=== PATIENT | female | born 2000 | race Caucasian/White ===

== ENCOUNTER 2021-05-20 07:54 | Day surgery (SDC) | payer OTHER ==
[2021-05-20 08:51] VITALS: BMI 44.2
[2021-05-20 09:09] LABS: Fetal Membranes Rupture No Membranes Rupture (No Rupture)
[2021-05-20] MEDS ORDERED: hydrALAZINE 20 MG/ML VIAL SLOW IVP PRN (10:04)
== END 2021-05-20 10:15 | disposition home or self-care (01) ==
LOC: CSHLD/OP 07:54
PROVIDERS: ATTEND Family Medicine
DX: O99.891 Other specified diseases and conditions complicating pregnancy (principal); N89.8 Other specified noninflammatory disorders of vagina; Z3A.37 37 weeks gestation of pregnancy; Z79.899 Other long term (current) drug therapy
CPT/HCPCS: 84112; 87480; 87510; 87660; 99284

== ENCOUNTER 2021-05-30 09:02 | Inpatient (IN) | payer OTHER ==
[2021-05-30] MEDS ORDERED: Methylergonovine 0.2 MG/ML VIAL IM PRN (09:33)
[2021-05-30] MEDS ORDERED: HYDROcodone/Acetaminophen 5/325 mg Tablet PO PRN (09:33)
[2021-05-30] MEDS ORDERED: Promethazine HCl 25 MG/ML VIAL IM PRN (09:33)
[2021-05-30] MEDS ORDERED: Misoprostol 200 MCG TAB PR PRN (09:33)
[2021-05-30] MEDS ORDERED: Lidocaine 1% (PF) 30 ML VIAL SC PRN (09:33)
[2021-05-30] MEDS ORDERED: Ibuprofen 800 MG TAB PO PRN (09:33)
[2021-05-30] MEDS ORDERED: Carboprost 250 MCG/ML AMP IM PRN (09:33)
[2021-05-30] MEDS ORDERED: Ondansetron PF 4 MG/2 ML Vial IVP PRN (09:33)
[2021-05-30] MEDS ORDERED: Acetaminophen 500 MG TAB PO PRN (09:33)
[2021-05-30] MEDS ORDERED: hydrALAZINE 20 MG/ML VIAL SLOW IVP PRN (09:33)
[2021-05-30] MEDS ORDERED: Diphenoxylate HCl/Atropine Tablet PO PRN (09:33)
[2021-05-30] MEDS ORDERED: NS w/ Oxytocin 30 units 500 ML IVPB SCH (09:45)
[2021-05-30] MEDS ORDERED: NS w/ Oxytocin 30 units 500 ML IV SCH ×2 (09:45)
[2021-05-30] MEDS ORDERED: Lactated Ringer's 1,000 ML IV SCH (09:45)
[2021-05-30 10:22] LABS: Hemoglobin 11.6 g/dL (12.0-15.5); Mean Corpuscular HGB CONC 34.6 g/dL (32.0-36.0); Mean Corpuscular Hemoglobin 31.5 pg (27.0-33.0); Mean Platelet Volume 12.1 fl (7.4-10.4); Platelet Count 208 10x3/uL (150-450); RBC Distribution Width 13.3 % (11.5-14.5); Red Blood Cell (RBC) Count 3.68 10x6/uL (3.90-5.03); White Blood Cell (WBC) Count 13.1 10x3/uL (3.5-10.5)
[2021-05-30 10:50] LABS: Hep B Surf Ag Non-Reactive S/CO (NonReactive); Syphilis Antibody Nonreactive (Nonreactive); Syphilis Antibody Index 0.04 S/CO (<1.00 Non-Reactive)
[2021-05-30 11:08] LABS: HBSAg Index 0.18 S/CO (0-0.99)
[2021-05-30 11:41] LABS: SARS-CoV-2 NAA Rapid Test Not Detected (NotDetected)
[2021-05-30] MEDS: Butorphanol Tartrate 1 MG/ML VIAL SLOW IVP PRN ×3 (12:38→14:50)
[2021-05-30] MEDS ORDERED: Fentanyl 2 mcg/Bup 0.1% Cadd 100 ML ONE ×2 (13:17→22:36)
[2021-05-30] MEDS ORDERED: Azithromycin 500 MG VIAL ONE (23:13)
[2021-05-30] MEDS ORDERED: Ondansetron PF 4 MG/2 ML Vial ONE (23:23)
[2021-05-30] MEDS ORDERED: Dexamethasone 4 mg/ml Vial ONE (23:23)
[2021-05-30] MEDS ORDERED: Oxytocin 10 UNITS/ML VIAL ONE (23:23)
[2021-05-30] MEDS ORDERED: Morphine PF 10 MG/10 ML VIAL ONE (23:23)
[2021-05-30] MEDS ORDERED: Famotidine/PF 20 mg/2ml Vial SLOW IVP PRN (23:24)
[2021-05-30] MEDS ORDERED: Bicitra 30 ML UDCUP PO PRN (23:24)
[2021-05-30] MEDS ORDERED: Lidocaine 2% MPF 10 ML AMP (For Epidural Use) ONE ×2 (23:25→23:48)
[2021-05-30] MEDS ORDERED: CEFAZOLIN 2 GM in Premix Bag 1 BAG IVPB SCH (23:30)
[2021-05-30] MEDS ORDERED: Phenylephrine 40 MG/NS 250 ML 250 ML ONE (23:50)
[2021-05-30] MEDS ORDERED: Azithromycin 500 MG in Sodium Chloride 0.9% 250 ML 250 ML IVPB SCH (23:59)
[2021-05-31] MEDS ORDERED: Meperidine HCl/PF 25 MG/ML VIAL SLOW IVP PRN ×2 (00:39→00:41)
[2021-05-31] MEDS ORDERED: Fentanyl 100 MCG/2 ML VIAL SLOW IVP PRN ×2 (00:39→00:41)
[2021-05-31] MEDS ORDERED: Naloxone HCl 0.4 mg/ml Vial IV PRN ×2 (00:39→00:41)
[2021-05-31] MEDS ORDERED: Ondansetron PF 4 MG/2 ML Vial IVP PRN ×3 (00:39→04:19)
[2021-05-31] MEDS ORDERED: Ketorolac Tromethamine 30 MG/ML VIAL IVP PRN ×2 (00:39→00:41)
[2021-05-31] MEDS ORDERED: Ondansetron HCl/PF 4 MG/2 ML Vial IVP PRN ×2 (00:39→00:41)
[2021-05-31] MEDS ORDERED: Promethazine HCl 25 MG SUPP PR PRN ×2 (00:39→00:41)
[2021-05-31] MEDS ORDERED: HYDROmorphone 2 MG/ML VIAL SLOW IVP PRN (00:39)
[2021-05-31] MEDS ORDERED: diphenhydrAMINE 50 MG/ML VIAL IVP PRN ×2 (00:39→00:41)
[2021-05-31] MEDS ORDERED: Hydrocerin (Eucerin) Cream 120 gm Jar TOP PRN ×2 (00:39→00:41)
[2021-05-31] MEDS ORDERED: Naloxone HCl 0.4 mg/ml Vial IVP PRN ×4 (00:39→00:41)
[2021-05-31] MEDS ORDERED: Promethazine HCl 25 MG/ML VIAL IM PRN ×3 (00:39→04:19)
[2021-05-31] MEDS ORDERED: L&D-Morphine 4 MG/ML VIAL SLOW IVP PRN (00:41)
[2021-05-31] MEDS ORDERED: Communication Order-Pharmacy FS SCH ×2 (00:45)
[2021-05-31] MEDS ORDERED: Ketorolac Tromethamine 30 MG/ML VIAL IVP SCH ×2 (00:45)
[2021-05-31] MEDS ORDERED: Meperidine HCl/PF 25 MG/ML VIAL ONE (01:46)
[2021-05-31] MEDS ORDERED: Morphine 4 MG/ML VIAL ONE (02:51)
[2021-05-31] MEDS ORDERED: NS w/ Oxytocin 30 units 500 ML IV SCH (04:19)
[2021-05-31] MEDS ORDERED: Boostrix 0.5 ML (Tdap) VIAL IM ONE (04:19)
[2021-05-31] MEDS ORDERED: hydrALAZINE 20 MG/ML VIAL SLOW IVP PRN (04:19)
[2021-05-31] MEDS ORDERED: diphenhydrAMINE 25 MG CAP PO PRN (04:19)
[2021-05-31] MEDS ORDERED: Bisacodyl 10 MG SUPP PR PRN (04:19)
[2021-05-31] MEDS ORDERED: Lanolin Ointment 7 GM TUBE TOP PRN (04:19)
[2021-05-31] MEDS: Ketorolac Tromethamine 30 MG/ML VIAL IVP SCH ×4 (06:29→23:49)
[2021-05-31 06:42] VITALS: BMI 42.4
[2021-05-31] MEDS: Ferrous Sulfate 325 MG TAB PO SCH ×2 (08:36→23:40)
[2021-05-31] MEDS: Docusate Calcium (SURFAK) 240 MG CAP PO SCH ×2 (08:53→23:49)
[2021-05-31] MEDS: Prenatal Vitamin 1 TAB PO SCH (08:53)
[2021-05-31] MEDS ORDERED: HYDROcodone/Acetaminophen 5/325 mg Tablet PO PRN ×2 (12:45)
[2021-05-31] MEDS ORDERED: Diphenoxylate HCl/Atropine Tablet PO PRN (12:45)
[2021-05-31] MEDS ORDERED: Meperidine HCl/PF 25 MG/ML VIAL IM PRN (12:45)
[2021-05-31] MEDS ORDERED: Butorphanol Tartrate 1 MG/ML VIAL SLOW IVP PRN (12:45)
[2021-05-31] MEDS: Simethicone Chewable 80 MG TAB PO PRN ×2 (17:33→23:53)
[2021-05-31] MEDS: HYDROcodone/Acetaminophen 5/325 mg Tablet PO PRN (19:46)
[2021-06-01] MEDS: HYDROcodone/Acetaminophen 5/325 mg Tablet PO PRN ×3 (04:13→12:51)
[2021-06-01] MEDS ORDERED: Ibuprofen 800 MG TAB PO PRN (06:00)
[2021-06-01] MEDS: Ibuprofen 800 MG TAB PO SCH ×2 (06:21→14:23)
[2021-06-01] MEDS: Simethicone Chewable 80 MG TAB PO PRN ×2 (06:22→08:54)
[2021-06-01 06:50] LABS: Hemoglobin 9.6 g/dL (12.0-15.5); Mean Corpuscular HGB CONC 33.1 g/dL (32.0-36.0); Mean Corpuscular Hemoglobin 31.5 pg (27.0-33.0); Mean Corpuscular Volume 95.1 fl (81.6-98.3); Mean Platelet Volume 11.4 fl (7.4-10.4); Platelet Count 176 10x3/uL (150-450); Red Blood Cell (RBC) Count 3.05 10x6/uL (3.90-5.03); White Blood Cell (WBC) Count 13.4 10x3/uL (3.5-10.5)
[2021-06-01] MEDS: Docusate Calcium (SURFAK) 240 MG CAP PO SCH (08:53)
[2021-06-01] MEDS: Ferrous Sulfate 325 MG TAB PO SCH (08:54)
[2021-06-01] MEDS: Prenatal Vitamin 1 TAB PO SCH (08:54)
[2021-06-01 11:32] VITALS: BP 131/80; TEMP 97.7
== END 2021-06-01 16:55 | disposition home or self-care (01) | DRG 788 ==
LOC: CSHLD 09:02 → CSHPED 05-31 03:50
PROVIDERS: ADMIT Family Medicine; ATTEND Family Medicine
PROC: 10D00Z1 Extraction of Products of Conception, Low, Open Approach (ICD-10-PCS; principal; 2021-05-30)
DX: O64.0XX0 Obstructed labor due to incomplete rotation of fetal head, not applicable or unspecified (principal); O62.1 Secondary uterine inertia; O34.211 Maternal care for low transverse scar from previous cesarean delivery; Z37.0 Single live birth; Z3A.39 39 weeks gestation of pregnancy; Z20.822 Contact with and (suspected) exposure to COVID-19
CPT/HCPCS: 36415; 85027; 86780; 86850; 86900; 86901; 87340; J0595; J1100; J1885; J2175; J2210; J2270; J2274; J2405; J2550; J2590; U0002